=== PATIENT | male | born 1985 | race Caucasian/White ===

== ENCOUNTER 2016-09-27 16:45 | Emergency (ER) | payer MEDICAID ==
[~2016-09-27] VITALS: Ht 177.8 cm; Wt 104.3 kg
[2016-09-27 17:11] LABS: BASOPHIL % 0.5 % (0-2); PLATELET COUNT 218 x10^3mcL (130-400); RED CELL DISTRIBUTION WIDTH 12.7 % (11.5-14.5)
[2016-09-27 17:23] LABS: CALCIUM 9.3 mg/dL (8.5-10.1); CARBON DIOXIDE 15.4 mmol/L (21-32); CHLORIDE SERUM 105 mmol/L (98-107); CREATININE SERUM 1.3 mg/dL (0.7-1.3); GFR1 > 60 mL/min; GLUCOSE SERUM 101 mg/dL (74-106); POTASSIUM SERUM 3.6 mmol/L (3.5-5.1); SODIUM SERUM 144 mmol/L (136-145)
[2016-09-27 17:31] LABS: ALBUMIN 4.1 g/dL (3.4-5.0); ALKALINE PHOSPHATASE 127 U/L (46-116); ALT/SGPT 91 U/L (16-63); BILIRUBIN TOTAL 0.33 mg/dL (0.20-1.00)
[2016-09-27 17:44] LABS: AST/SGOT 49 U/L (15-37)
[2016-09-27 17:57] LABS: CK-MB 0.9 ng/mL (0-3.6)
[2016-09-27 19:58] LABS: AMPHETAMINE QUAL UR NONE DETECTED (NEG <=1000)
[2016-09-27 20:52] VITALS: BP 151/71
== END 2016-09-27 20:52 | disposition home or self-care (01) ==
LOC: ED 16:45
PROVIDERS: Emergency Medicine
DX: F10.129 Alcohol abuse with intoxication, unspecified (principal)
CPT/HCPCS: 80307; G0480; J1630; J7030